=== PATIENT | female | born 1930 | race Caucasian/White ===

== ENCOUNTER 2018-10-15 19:09 | Inpatient (IN) | payer OTHER ==
[~2018-10-15] VITALS: Ht 154.9 cm; Wt 59.0 kg
== END 2018-11-02 12:24 | disposition home or self-care (01) | DRG 177 ==
LOC: ER 19:09 → MEDI 10-16 12:11
PROVIDERS: Surgery; ADMIT Internal Medicine
PROC: 4A12X4Z Monitoring of Cardiac Electrical Activity, External Approach (ICD-10-PCS; 2018-10-16)
PROC: B246ZZZ Ultrasonography of Right and Left Heart (ICD-10-PCS; 2018-10-16)
PROC: BB24ZZZ Computerized Tomography (CT Scan) of Bilateral Lungs (ICD-10-PCS; 2018-10-16)
PROC: 3E0F7GC Introduction of Other Therapeutic Substance into Respiratory Tract, Via Natural or Artificial Opening (ICD-10-PCS; 2018-10-16)
PROC: 4A033R1 Measurement of Arterial Saturation, Peripheral, Percutaneous Approach (ICD-10-PCS; 2018-10-16)
PROC: 3E0G76Z Introduction of Nutritional Substance into Upper GI, Via Natural or Artificial Opening (ICD-10-PCS; 2018-10-29)
PROC: 0DH63UZ Insertion of Feeding Device into Stomach, Percutaneous Approach (ICD-10-PCS; principal; 2018-10-29 13:00)
DX: J69.0 Pneumonitis due to inhalation of food and vomit (principal); A41.89 Other specified sepsis; E46 Unspecified protein-calorie malnutrition; F03.90 Unspecified dementia, unspecified severity, without behavioral disturbance, psychotic disturbance, mood disturbance, and anxiety; I48.0 Paroxysmal atrial fibrillation; Z74.01 Bed confinement status; E86.0 Dehydration; I11.9 Hypertensive heart disease without heart failure; R13.19 Other dysphagia